=== PATIENT | male | born 1965 | race Caucasian/White ===

== ENCOUNTER 2017-12-14 01:40 | Emergency (ER) | payer BC ==
[~2017-12-14] VITALS: Ht 167.6 cm; Wt 98.9 kg
[~2017-12-14 01:40] MED LIST: CRESTOR20 MG PO; FLAGYL500 MG PO; FLEXERIL5 MG PO; MOTRIN800 MG PO; SYNTHROID0.025 MG PO; VICODIN 5/500 505 MG PO
[2017-12-14] MEDS ORDERED: FENOFIBRATE145 M1 PO (01:51)
[2017-12-14] MEDS ORDERED: LEVOTHYROXINE150 MCG PO (01:51)
[2017-12-14] MEDS ORDERED: NORCO 5-325 TA1 EACH PO (02:51)
== END 2017-12-14 03:55 | disposition home or self-care (01) ==
LOC: ED 01:40
DX: S62.306A Unspecified fracture of fifth metacarpal bone, right hand, initial encounter for closed fracture (principal); Z79.899 Other long term (current) drug therapy; W22.8XXA Striking against or struck by other objects, initial encounter; Y93.89 Activity, other specified; Y92.009 Unspecified place in unspecified non-institutional (private) residence as the place of occurrence of the external cause; Y99.8 Other external cause status

== ENCOUNTER → 2017-12-18 | Outpatient (CLI) | payer BC ==
[~2017-12-18] MED LIST changes: +FENOFIBRATE145 M1 PO; +LEVOTHYROXINE150 MCG PO; +NORCO 5-325 TA1 EACH PO
== END | disposition home or self-care (01) ==
LOC: ORTHO 03:37
DX: Z47.89 Encounter for other orthopedic aftercare (principal); S62.306D Unspecified fracture of fifth metacarpal bone, right hand, subsequent encounter for fracture with routine healing; Z79.899 Other long term (current) drug therapy; X58.XXXD Exposure to other specified factors, subsequent encounter

== ENCOUNTER → 2018-02-06 | Outpatient (CLI) | payer BC ==
[~2018-02-06] MED LIST changes: +ZOFRAN4 MG PO
== END | disposition home or self-care (01) ==
LOC: ORTHO 04:37
DX: Z47.89 Encounter for other orthopedic aftercare (principal); S62.306D Unspecified fracture of fifth metacarpal bone, right hand, subsequent encounter for fracture with routine healing; X58.XXXD Exposure to other specified factors, subsequent encounter

== ENCOUNTER → 2018-03-07 | Outpatient (CLI) | payer BC | END | disposition home or self-care (01) | LOC: ORTHO 02:57 | DX: S62.306D Unspecified fracture of fifth metacarpal bone, right hand, subsequent encounter for fracture with routine healing (principal); X58.XXXD Exposure to other specified factors, subsequent encounter ==

== ENCOUNTER → 2018-03-28 | Day surgery (SDC) | payer BC ==
[2018-03-25 12:25] LABS: BILIRUBIN NEGATIVE (NEGATIVE); BLOOD NEGATIVE (NEGATIVE); CLARITY SL CLOUDY (CLEAR); COLOR YELLOW (YELLOW); GLUCOSE NEGATIVE (NEGATIVE); KETONE NEGATIVE (NEGATIVE); LEUKO ESTERASE NEGATIVE (NEGATIVE); NITRITE NEGATIVE (NEGATIVE); SPECIFIC GRAVITY >= 1.030 (1.005-1.030); UROBILINOGEN 0.2 E.U./dl (0.2-1.0)
[2018-03-25 12:38] LABS: BACTERIA 1+; HYALINE CAST 16-20
[2018-03-25 12:43] LABS: BASO # 0.1 10*3/uL (0.0-0.1); BASO % 1.1 % (0.0-1.0); EOS # 0.4 10*3/uL (0.0-0.4); EOS % 4.7 % (1.0-4.0); HEMATOCRIT 44.7 % (42.0-52.0); HEMOGLOBIN 14.7 g/dl (14.0-18.0); LYMPH # 2.1 10*3/uL (1.3-4.4); LYMPH % 25.4 % (27.0-41.0); MEAN CELL VOLUME 92.2 fl (80.0-94.0); MEAN CORPUSCULAR HGB 30.3 pg (27.0-31.0); MEAN CORPUSCULAR HGB CONC 32.9 g/dl (33.0-37.0); MEAN PLATELET VOLUME 11.2 fl (9.6-12.3); MONO # 0.5 10*3/uL (0.1-1.0); MONO % 6.5 % (3.0-9.0); NEUT # 5.1 10*3/uL (2.3-7.9); NEUT % 60.5 % (47.0-73.0); PLATELET COUNT AUTOMATED 229 10*3/uL (130-400); RED BLOOD COUNT 4.85 10*6/uL (4.50-5.90); RED CELL DISTRI WIDTH 12.2 % (0-14.5); WHITE BLOOD COUNT 8.4 10*3/uL (4.8-10.8)
[2018-03-25 12:50] LABS: BUN 18 mg/dl (7-24); CHLORIDE 109 mmol/L (98-107); CREATININE 1.28 mg/dL (0.70-1.30); POTASSIUM 4.7 mmol/L (3.5-5.1); SODIUM 142 mmol/L (136-145)
[~2018-03-28] VITALS: Ht 167.6 cm; Wt 99.8 kg
--- NOTE | ~2018-03-28 | O ---
[place], [place] OPERATIVE NOTE NAME: [id number] UNIT #: [id number] ROOM: DOCTOR: KATHE QUAN DO BIRTHDATE: [birth year] DOS: 03/28/2018 PREOPERATIVE DIAGNOSIS: Retained hardware, right fifth metacarpal. POSTOPERATIVE DIAGNOSIS: Retained hardware, right fifth metacarpal. OPERATIVE PROCEDURE: Removal of retained hardware, right fifth metacarpal. SURGEON: Kathe Quan DO. MANAGER LPN: Sallie. ANESTHESIA: Gould, CUSTODIAL MANAGER, Local [employer]. INDICATIONS: The patient is a 53-year-old male with a history of a right fifth metacarpal shaft fracture with significant angulation. He underwent an open reduction and internal fixation in the end of 12/2017. The fracture has healed by x-ray and physical examination. The hardware is causing him discomfort. He is also having decreased ability to get his full range of motion. The risks and benefits of the procedure were explained to the patient preoperatively. Preoperative labs and x-rays were obtained. PROCEDURE: The right hand was marked in the holding room. The patient was brought to the operative suite. The patient was placed supine on the operative table. A monitored anesthetic was performed by the nurse tin recovery worker. The right upper extremity was prepped and draped in the usual orthopedic fashion. Tourniquet was applied to the right upper arm, but not inflated. Timeout was performed. The patient received Ancef 2 grams IV piggyback. The area about the previously made incision at the dorsal ulnar side of the fifth metacarpal was injected with Marcaine 0.5% plain. The incision was made sharply with a scalpel. Subcutaneous tissue was spread down to the level of the extensor tendons. The extensor tendons were retracted in a dorsal radial direction. The plate was identified. The fibrous debris was cleared from the plate and screws. The 3 screws within the plate were removed manually with a screwdriver. A single interfragmentary screw was removed as well. The area was copiously irrigated with normal saline. The screw holes were curetted. There is no purulence or evidence of infection. The wound was closed in a horizontal mattress suture fashion with Prolene. The area was again injected with Marcaine 0.5% with epinephrine. Dressing was applied with Xeroform, 4 x 4's, cast padding, and an Patricio bandage. The patient was taken to the recovery room in satisfactory condition. Sponge and needle count correct. ESTIMATED BLOOD LOSS: 15 mL. DRAINS: None. PACKING: None. [place], [place] OPERATIVE NOTE NAME: SUE SANTOS II UNIT #: [id number] ROOM: DOCTOR: KATHE QUAN DO BIRTHDATE: [birth year] COMPLICATIONS: None. SPECIMENS: The plate and four screws were sent to the lab. KATHE QUAN DO CM:OPRECORD:OPERATIVE NOTE [id number] KATHE QUAN DO 04/01/18 0846 interface
[2018-03-28 07:17] VITALS: BP 142/97
[2018-03-28 09:00] VITALS: BP 97/60
[2018-03-28 09:15] VITALS: BP 103/66
[2018-03-28 09:30] VITALS: BP 103/63
== END | disposition home or self-care (01) ==
LOC: SDC 03-21 11:00
PROVIDERS: Orthopaedic Surgery
DX: T84.89XA Other specified complication of internal orthopedic prosthetic devices, implants and grafts, initial encounter (principal); E03.9 Hypothyroidism, unspecified; E78.00 Pure hypercholesterolemia, unspecified; E66.9 Obesity, unspecified; Z98.890 Other specified postprocedural states; Z79.899 Other long term (current) drug therapy; Z87.442 Personal history of urinary calculi

== ENCOUNTER 2019-01-12 17:30 | Emergency (ER) | payer BC ==
[~2019-01-12] VITALS: Ht 167.6 cm; Wt 92.5 kg
[~2019-01-12 17:30] MED LIST changes: +MEDROL DOSEPAK4 MG PO; +TESSALON PERLE100 M1 PO; +ZITHROMAX250 MG PO
[2019-01-12] MEDS ORDERED: MEDROL DOSEPAK4 MG PO (17:50)
== END 2019-01-12 18:06 | disposition home or self-care (01) ==
LOC: ED 17:30
DX: T63.441A Toxic effect of venom of bees, accidental (unintentional), initial encounter (principal); L53.0 Toxic erythema; M79.89 Other specified soft tissue disorders; Z79.2 Long term (current) use of antibiotics; Z79.899 Other long term (current) drug therapy; Y92.89 Other specified places as the place of occurrence of the external cause

== ENCOUNTER → 2019-11-19 | Outpatient (CLI) | payer BC | END | disposition home or self-care (01) | LOC: RAD 15:49 | DX: M25.552 Pain in left hip (principal); M25.562 Pain in left knee ==

== ENCOUNTER → 2019-12-19 | Outpatient (CLI) | payer BC ==
[2019-12-19 15:45] LABS: BASO # 0.1 10*3/uL (0.0-0.1); BASO % 0.7 % (0.0-1.0); EOS # 0.3 10*3/uL (0.0-0.4); HEMATOCRIT 43.3 % (42.0-52.0); LYMPH # 2.4 10*3/uL (1.3-4.4); LYMPH % 28.8 % (27.0-41.0); MEAN CELL VOLUME 91.9 fl (80.0-94.0); MEAN CORPUSCULAR HGB 29.7 pg (27.0-31.0); MEAN CORPUSCULAR HGB CONC 32.3 g/dl (33.0-37.0); MEAN PLATELET VOLUME 10.2 fl (9.6-12.3); MONO # 0.5 10*3/uL (0.1-1.0); MONO % 6.1 % (3.0-9.0); NEUT % 59.7 % (47.0-73.0); PLATELET COUNT AUTOMATED 248 10*3/uL (130-400); RED BLOOD COUNT 4.71 10*6/uL (4.50-5.90); RED CELL DISTRI WIDTH 12.2 % (0-14.5); WHITE BLOOD COUNT 8.5 10*3/uL (4.8-10.8)
[2019-12-19 16:13] LABS: ALBUMIN 3.9 gm/dl (3.1-4.5); ALKALINE PHOSPHATASE 42 U/L (45-117); BUN 20 mg/dl (7-24); CHLORIDE 107 mmol/L (98-107); CREATININE 1.16 mg/dL (0.70-1.30); SGOT/AST 28 IU/L (3-35); SGPT/ALT 45 U/L (12-78); SODIUM 141 mmol/L (136-145); T3 UPTAKE 34 % (31-39); THYROXINE (T4) TOTAL 8.8 ug/dl (4.5-12.1); TOTAL PROTEIN 7.4 gm/dL (6.4-8.2)
[2019-12-20 09:10] LABS: FOLLICLE STIMULATING HORMONE 4.6 mIU/mL (1.5-12.4); LUTEINIZING HORMONE 3.8 mIU/mL (1.7-8.6); PROGESTERONE 0.1 ng/mL (0.0-0.5); PROLACTIN 9.3 ng/mL (4.0-15.2)
== END | disposition home or self-care (01) ==
LOC: LAB 15:21
PROVIDERS: Urology
DX: R53.82 Chronic fatigue, unspecified (principal)

== ENCOUNTER → 2020-01-22 | Outpatient (CLI) | payer BC | END | disposition home or self-care (01) | LOC: MRI 14:00 | PROVIDERS: ATTEND Internal Medicine | DX: M16.12 Unilateral primary osteoarthritis, left hip (principal); M76.02 Gluteal tendinitis, left hip; M70.62 Trochanteric bursitis, left hip ==

== ENCOUNTER → 2020-02-05 | Outpatient (CLI) | payer BC | END | disposition home or self-care (01) | LOC: LAB 09:04 | PROVIDERS: ATTEND Urology | DX: R53.83 Other fatigue (principal) ==

== ENCOUNTER → 2020-03-18 | Outpatient (CLI) | payer BC ==
[2020-03-18 16:48] LABS: BASO # 0.1 10*3/uL (0.0-0.1); BASO % 0.8 % (0.0-1.0); EOS # 0.3 10*3/uL (0.0-0.4); EOS % 3.3 % (1.0-4.0); HEMATOCRIT 43.5 % (42.0-52.0); LYMPH # 2.2 10*3/uL (1.3-4.4); LYMPH % 24.7 % (27.0-41.0); MEAN CELL VOLUME 92.6 fl (80.0-94.0); MEAN CORPUSCULAR HGB CONC 32.4 g/dl (33.0-37.0); MEAN PLATELET VOLUME 10.1 fl (9.6-12.3); MONO # 0.6 10*3/uL (0.1-1.0); NEUT # 5.5 10*3/uL (2.3-7.9); NEUT % 62.6 % (47.0-73.0); PLATELET COUNT AUTOMATED 253 10*3/uL (130-400); RED CELL DISTRI WIDTH 12.7 % (0-14.5); WHITE BLOOD COUNT 8.7 10*3/uL (4.8-10.8)
[2020-03-18 17:23] LABS: ALBUMIN 3.9 gm/dl (3.1-4.5); ALKALINE PHOSPHATASE 35 U/L (45-117); BUN 18 mg/dl (7-24); CHLORIDE 107 mmol/L (98-107); CREATININE 1.16 mg/dL (0.70-1.30); POTASSIUM 3.9 mmol/L (3.5-5.1); SGOT/AST 31 IU/L (3-35); SGPT/ALT 48 U/L (12-78); SODIUM 142 mmol/L (136-145); TOTAL PROTEIN 7.1 gm/dL (6.4-8.2)
== END | disposition home or self-care (01) ==
LOC: LAB 16:36
PROVIDERS: ATTEND Urology
DX: Z12.5 Encounter for screening for malignant neoplasm of prostate (principal); D40.0 Neoplasm of uncertain behavior of prostate

== ENCOUNTER → 2020-06-18 | Outpatient (CLI) | payer BC | END | disposition home or self-care (01) | LOC: US 08:22 | PROVIDERS: ATTEND Urology | DX: E29.1 Testicular hypofunction (principal) ==

== ENCOUNTER → 2020-07-08 | Outpatient (CLI) | payer BC ==
[2020-07-08 13:50] LABS: BASO # 0.1 10*3/uL (0.0-0.1); EOS # 0.4 10*3/uL (0.0-0.4); HEMATOCRIT 46.4 % (42.0-52.0); LYMPH # 2.4 10*3/uL (1.3-4.4); LYMPH % 30.4 % (27.0-41.0); MEAN CELL VOLUME 89.9 fl (80.0-94.0); MEAN CORPUSCULAR HGB 29.8 pg (27.0-31.0); MEAN CORPUSCULAR HGB CONC 33.2 g/dl (33.0-37.0); MEAN PLATELET VOLUME 10.8 fl (9.6-12.3); MONO # 0.8 10*3/uL (0.1-1.0); MONO % 10.1 % (3.0-9.0); NEUT # 4.1 10*3/uL (2.3-7.9); PLATELET COUNT AUTOMATED 252 10*3/uL (130-400); RED BLOOD COUNT 5.16 10*6/uL (4.50-5.90); RED CELL DISTRI WIDTH 12.1 % (0-14.5); WHITE BLOOD COUNT 7.8 10*3/uL (4.8-10.8)
[2020-07-08 14:05] LABS: ALBUMIN 3.7 gm/dl (3.1-4.5); ALKALINE PHOSPHATASE 49 U/L (45-117); BUN 19 mg/dl (7-24); CHLORIDE 110 mmol/L (98-107); CREATININE 1.24 mg/dL (0.70-1.30); POTASSIUM 4.2 mmol/L (3.5-5.1); SGOT/AST 32 IU/L (3-35); SGPT/ALT 56 U/L (12-78); SODIUM 144 mmol/L (136-145)
== END | disposition home or self-care (01) ==
LOC: LAB 13:30 → CT 14:00
PROVIDERS: ATTEND Urology
DX: R10.9 Unspecified abdominal pain (principal); R53.83 Other fatigue; D40.0 Neoplasm of uncertain behavior of prostate; K62.89 Other specified diseases of anus and rectum

== ENCOUNTER → 2020-10-28 | Day surgery (SDC) | payer BC ==
[~2020-10-28] VITALS: Ht 167.6 cm; Wt 91.6 kg
[~2020-10-28] MED LIST changes: +ASPIRIN81 M1 PO; +DAILY VALUE1 EACH PO
[2020-10-28 06:45] VITALS: BP 153/99
[2020-10-28 07:45] VITALS: BP 128/65
[2020-10-28 07:50] VITALS: BP 135/65
[2020-10-28 07:55] VITALS: BP 132/57
[2020-10-28 08:00] VITALS: BP 103/41
[2020-10-28 08:13] VITALS: BP 120/91
== END | disposition home or self-care (01) ==
LOC: SDC 10-25 14:00 → COVID19 10-25 14:00 → SDC 10-26 08:00
PROVIDERS: ATTEND Orthopaedic Surgery
DX: M16.12 Unilateral primary osteoarthritis, left hip (principal); M76.892 Other specified enthesopathies of left lower limb, excluding foot; M70.62 Trochanteric bursitis, left hip; E03.9 Hypothyroidism, unspecified; E78.00 Pure hypercholesterolemia, unspecified; Z98.890 Other specified postprocedural states; Z79.899 Other long term (current) drug therapy; Z20.822 Contact with and (suspected) exposure to COVID-19

== ENCOUNTER → 2020-12-23 | Day surgery (SDC) | payer BC ==
[2020-12-20 13:23] VITALS: BP 130/82
[2020-12-20 14:56] LABS: BASO # 0.1 10*3/uL (0.0-0.1); BASO % 0.8 % (0.0-1.0); EOS # 0.2 10*3/uL (0.0-0.4); EOS % 2.1 % (1.0-4.0); LYMPH # 2.1 10*3/uL (1.3-4.4); LYMPH % 18.3 % (27.0-41.0); MEAN CELL VOLUME 94.5 fl (80.0-94.0); MEAN CORPUSCULAR HGB 30.8 pg (27.0-31.0); MEAN CORPUSCULAR HGB CONC 32.6 g/dl (33.0-37.0); MEAN PLATELET VOLUME 11.1 fl (9.6-12.3); MONO # 0.7 10*3/uL (0.1-1.0); MONO % 6.3 % (3.0-9.0); NEUT # 8.1 10*3/uL (2.3-7.9); NEUT % 70.3 % (47.0-73.0); PLATELET COUNT AUTOMATED 221 10*3/uL (130-400); RED BLOOD COUNT 4.87 10*6/uL (4.50-5.90); WHITE BLOOD COUNT 11.5 10*3/uL (4.8-10.8)
[2020-12-20 15:21] LABS: BUN 17 mg/dl (7-24); CHLORIDE 109 mmol/L (98-107); CREATININE 0.95 mg/dL (0.70-1.30); SODIUM 141 mmol/L (136-145)
[~2020-12-23] VITALS: Ht 167.6 cm; Wt 93.0 kg
[2020-12-23 06:51] VITALS: BP 142/88
[2020-12-23 09:10] VITALS: BP 114/74
[2020-12-23 09:25] VITALS: BP 100/70
[2020-12-23 09:36] VITALS: BP 110/73
[2020-12-23 09:54] VITALS: BP 120/79
[2020-12-23 10:06] VITALS: BP 101/67
== END | disposition home or self-care (01) ==
LOC: SDC 12-20 13:15
PROVIDERS: ATTEND Orthopaedic Surgery
DX: M70.62 Trochanteric bursitis, left hip (principal); M76.02 Gluteal tendinitis, left hip; E03.9 Hypothyroidism, unspecified; Z20.822 Contact with and (suspected) exposure to COVID-19; Z79.899 Other long term (current) drug therapy

== ENCOUNTER → 2021-05-05 | Outpatient (CLI) | payer BC | END | disposition home or self-care (01) | LOC: RAD 10:18 | PROVIDERS: ATTEND Internal Medicine | DX: R22.2 Localized swelling, mass and lump, trunk (principal) ==

== ENCOUNTER → 2021-06-01 | Outpatient (CLI) | payer BC | END | disposition home or self-care (01) | LOC: CT 05-30 09:00 | PROVIDERS: ATTEND Internal Medicine | DX: R91.8 Other nonspecific abnormal finding of lung field (principal) ==

== ENCOUNTER 2021-10-27 01:02 | Emergency (ER) | payer BC ==
[~2021-10-27] VITALS: Ht 167.6 cm; Wt 86.2 kg
== END 2021-10-27 04:48 | disposition home or self-care (01) ==
LOC: ED 01:02
DX: S90.222A Contusion of left lesser toe(s) with damage to nail, initial encounter (principal); W22.8XXA Striking against or struck by other objects, initial encounter; Y93.89 Activity, other specified; Y92.89 Other specified places as the place of occurrence of the external cause; Y99.8 Other external cause status

== ENCOUNTER → 2022-05-09 | Outpatient (CLI) | payer BC | END | disposition home or self-care (01) | LOC: RAD 16:09 | PROVIDERS: ATTEND Internal Medicine | DX: R05.1 Acute cough (principal); M41.84 Other forms of scoliosis, thoracic region; M48.04 Spinal stenosis, thoracic region ==

== ENCOUNTER → 2023-02-27 | Outpatient (CLI) | payer BC | END | disposition home or self-care (01) | LOC: LAB 15:22 | PROVIDERS: ATTEND Internal Medicine | DX: E29.1 Testicular hypofunction (principal) ==

== ENCOUNTER → 2023-09-27 | Day surgery (SDC) | payer BC ==
[2023-09-25 15:04] LABS: BUN 13 mg/dl (9-23); CHLORIDE 105 mmol/L (98-107); POTASSIUM 4.4 mmol/L (3.4-5.1)
[~2023-09-27] VITALS: Ht 167.6 cm; Wt 93.0 kg
[~2023-09-27] MED LIST changes: +BUPIVACAINE 0.5% 10 ML VIAL ONE; +Lactated Ringer's Solution 1,000 ML IV ONE; +Lidocaine Hydrochloride 30 ML VIAL ONE; +Midazolam Hydrochloride 2 MG/2 ML VIAL IV ONE; +OMEPRAZOLE40 MG PO; +PROPOFOL 200 MG/20 ML VIAL IV ONE; +ceFAZolin sodium 2GM/20ML IV ONE; +ceFAZolin sodium/sodium chlor 20 ML IV ONE
[2023-09-27 06:42] VITALS: BP 134/89
[2023-09-27 08:06] VITALS: BP 112/62
[2023-09-27 08:21] VITALS: BP 107/71
[2023-09-27 08:36] VITALS: BP 122/84
== END ==
LOC: SDC 09-24 08:00
PROVIDERS: ATTEND Orthopaedic Surgery
DX: G56.01 Carpal tunnel syndrome, right upper limb (principal); E78.00 Pure hypercholesterolemia, unspecified; E03.9 Hypothyroidism, unspecified; K21.9 Gastro-esophageal reflux disease without esophagitis; F10.90 Alcohol use, unspecified, uncomplicated; F17.210 Nicotine dependence, cigarettes, uncomplicated; Z90.89 Acquired absence of other organs; Z86.73 Personal history of transient ischemic attack (TIA), and cerebral infarction without residual deficits; Z98.890 Other specified postprocedural states; Z79.890 Hormone replacement therapy; Z79.899 Other long term (current) drug therapy

== ENCOUNTER → 2023-10-25 | Day surgery (SDC) | payer BC ==
[2023-10-19 15:34] LABS: BUN 17 mg/dl (9-23); CHLORIDE 106 mmol/L (98-107); POTASSIUM 4.3 mmol/L (3.4-5.1)
[~2023-10-25] VITALS: Ht 167.6 cm; Wt 99.8 kg
[~2023-10-25] MED LIST changes: -BUPIVACAINE 0.5% 10 ML VIAL ONE; +BUPIVACAINE 0.5% 30 ML IV ONE; +Lidocaine Hydrochloride 2% 10 ML AMP IM ONE; -ceFAZolin sodium 2GM/20ML IV ONE
[2023-10-25 07:32] VITALS: BP 131/95
[2023-10-25 10:14] VITALS: BP 138/104
[2023-10-25 10:29] VITALS: BP 133/94
[2023-10-25 10:42] VITALS: BP 132/88
== END | disposition home or self-care (01) ==
LOC: SDC 10-22 09:30
PROVIDERS: ATTEND Orthopaedic Surgery
DX: G56.02 Carpal tunnel syndrome, left upper limb (principal); G56.22 Lesion of ulnar nerve, left upper limb; E03.9 Hypothyroidism, unspecified; E78.00 Pure hypercholesterolemia, unspecified; K21.9 Gastro-esophageal reflux disease without esophagitis; F10.90 Alcohol use, unspecified, uncomplicated; F17.210 Nicotine dependence, cigarettes, uncomplicated; Z90.89 Acquired absence of other organs; Z98.890 Other specified postprocedural states; Z79.890 Hormone replacement therapy; Z79.899 Other long term (current) drug therapy

== ENCOUNTER → 2024-06-06 | Outpatient (CLI) | payer BC ==
[~2024-06-06] MED LIST changes: -BUPIVACAINE 0.5% 30 ML IV ONE; -Lactated Ringer's Solution 1,000 ML IV ONE; -Lidocaine Hydrochloride 2% 10 ML AMP IM ONE; -Lidocaine Hydrochloride 30 ML VIAL ONE; -Midazolam Hydrochloride 2 MG/2 ML VIAL IV ONE; -PROPOFOL 200 MG/20 ML VIAL IV ONE; -ceFAZolin sodium/sodium chlor 20 ML IV ONE
== END | disposition home or self-care (01) ==
LOC: US 06-03 09:00
PROVIDERS: ATTEND Internal Medicine
DX: N28.1 Cyst of kidney, acquired (principal); N28.89 Other specified disorders of kidney and ureter; E29.1 Testicular hypofunction; K76.0 Fatty (change of) liver, not elsewhere classified